=== PATIENT | male | born 1980 | race Caucasian/White ===

== ENCOUNTER 2019-12-25 16:08 | Inpatient (IN) | payer MEDICAID, OTHER ==
[~2019-12-25] VITALS: Ht 165.1 cm; Wt 84.5 kg
[2019-12-25] MEDS ORDERED: NITROGLYCERIN 0.4MG TABLET SL SL PRN (19:45)
[2019-12-25] MEDS ORDERED: ASPIRIN 81MG TABLET PO ONE (19:45)
[2019-12-25 20:02] LABS: BASOPHILS % 0.5 % (0.0-2.0); HEMATOCRIT. 47.8 % (42.0-52.0); LYMPHOCYTES % 22.6 % (20.0-50.0); MEAN CORPUSCULAR HEMOGLOBIN 31.8 pg (28.0-32.0); MEAN CORPUSCULAR VOLUME 89.3 fL (80.0-94.0); MONOCYTES % 3.9 % (2.0-8.0); PLATELET 237 x1000/uL (130-400); RED BLOOD CELL COUNT 5.36 mill/uL (4.7-6.1); RED CELL DISTRIBUTION WIDTH 13.6 % (11.6-14.6)
[2019-12-25 20:08] LABS: CHLORIDE 103 mEq/L (98-107)
[2019-12-25] MEDS ORDERED: HEPARIN 25,000 UNITS PREMIX 500 ML IV STA (21:39)
[2019-12-25] MEDS ORDERED: HEPARIN 5000 UNITS/ML VIAL IV SCH (23:30)
[2019-12-25] MEDS ORDERED: HEPARIN 5000 UNITS/ML VIAL IV PRN ×3 (23:30→23:33)
[2019-12-25] MEDS ORDERED: HEPARIN 25,000 UNITS PREMIX 500 ML IV PRN (23:30)
[2019-12-25 23:56] LABS: INR 1.1; PROTHROMBIN TIME 11.9 sec (9.6-11.0)
[2019-12-26] MEDS ORDERED: CLONIDINE 0.1MG TABLET PO PRN (08:30)
[2019-12-26] MEDS ORDERED: ONDANSETRON HCL 4MG/2ML INJ IV PRN (08:30)
[2019-12-26] MEDS ORDERED: IPRATROPIUM/ALBUTEROL 0.5-3(2.5)MG/3ML NEB HHN PRN (08:30)
[2019-12-26] MEDS ORDERED: MORPHINE SULFATE 2 MG/ML CPJ (NOT FOR IM USE) IV PRN (08:30)
[2019-12-26] MEDS ORDERED: ACETAMINOPHEN 325MG TABLET PO PRN (08:30)
[2019-12-26] MEDS ORDERED: DIPHENHYDRAMINE 50MG/ML VIAL IV PRN (08:30)
[2019-12-26] MEDS ORDERED: DEXTROSE 50% WATER 50ML SYRINGE IV PRN (09:00)
[2019-12-26] MEDS: INSULIN LISPRO 100 UNITS/ML SUBCUT SCH ×5 (09:00→21:50)
[2019-12-26] MEDS: BLOOD SUGAR DIAGNOSTIC STRIP TEST SCH ×4 (09:16→21:00)
[2019-12-26 09:56] LABS: PHOSPHORUS 4.2 mg/dL (2.5-4.9)
[2019-12-26] MEDS ORDERED: ENOXAPARIN 40MG/0.4ML SYR SUBCUT SCH (14:00)
[2019-12-26 15:34] LABS: CREATINE KINASE 78 IU/L (39-308)
[2019-12-26 15:35] LABS: CREATINE KINASE MB FRACTION < 1.0 ng/mL (0.5-3.6)
[2019-12-26 17:00] VITALS: BP 134/91
[2019-12-26] MEDS ORDERED: METF-815 MT (18:08)
[2019-12-26 20:00] VITALS: BP 124/80
[2019-12-26] MEDS ORDERED: ATORVASTATIN CALCIUM 40MG TABLET PO SCH (21:00)
[2019-12-27] VITALS: BP 99/78
[2019-12-27 00:10] LABS: CREATINE KINASE 87 IU/L (39-308)
[2019-12-27 00:11] LABS: CREATINE KINASE MB FRACTION < 1.0 ng/mL (0.5-3.6)
[2019-12-27 04:00] VITALS: BP 104/72
[2019-12-27] MEDS: BLOOD SUGAR DIAGNOSTIC STRIP TEST SCH ×2 (07:32→12:12)
[2019-12-27] MEDS: INSULIN LISPRO 100 UNITS/ML SUBCUT SCH ×2 (07:40→12:12)
[2019-12-27 07:50] VITALS: BP 104/73
[2019-12-27] MEDS ORDERED: REGADENOSON 0.4 MG/5 ML IV NR (08:00)
[2019-12-27 08:23] LABS: BASOPHILS % 0.4 % (0.0-2.0); HEMATOCRIT. 48.9 % (42.0-52.0); HEMOGLOBIN. 16.8 g/dL (14.0-18.0); LYMPHOCYTES % 30.1 % (20.0-50.0); MEAN CORPUSCULAR HEMOGLOBIN 30.8 pg (28.0-32.0); MEAN CORPUSCULAR VOLUME 89.4 fL (80.0-94.0); MEAN PLATELET VOLUME 9.9 fl (7.4-10.4); NEUTROPHILS % 60.5 % (40.0-76.0); PLATELET 232 x1000/uL (130-400); RED BLOOD CELL COUNT 5.47 mill/uL (4.7-6.1); RED CELL DISTRIBUTION WIDTH 13.6 % (11.6-14.6)
[2019-12-27 08:29] LABS: CHLORIDE 104 mEq/L (98-107)
[2019-12-27 08:41] LABS: LDL CHOLESTEROL 126 mg/dL (5-100)
[2019-12-27 08:42] LABS: HDL CHOLESTEROL 43 mg/dL (40-59)
[2019-12-27] MEDS ORDERED: REGADENOSON 0.4 MG/5 ML IV ONE (10:34)
[2019-12-27 12:00] VITALS: BP 118/78
[2019-12-27] MEDS ORDERED: ATOR40TA70 MT ×2 (12:17→12:26)
[2019-12-27] MEDS ORDERED: SITA1TAB2 PO ×2 (12:22→12:26)
[2019-12-27 13:41] VITALS: BP 118/78
[2019-12-27 16:00] VITALS: BP_SYST 112; BP_SYST 118; BP_DIAS 77; BP_DIAS 78
== END 2019-12-27 16:00 | disposition home or self-care (01) | DRG 203 ==
LOC: ER 16:08 → 8WST 12-26 00:03 → EDBEDREQTM 12-26 00:07 → EDBEDREQ 12-26 00:07 → EDBEDREQDT 12-26 00:07 → ENRESERV 12-26 15:28
PROVIDERS: ADMIT Internal Medicine; ATTEND Internal Medicine
DX: M94.0 Chondrocostal junction syndrome [Tietze] (principal); E78.5 Hyperlipidemia, unspecified; Y92.89 Other specified places as the place of occurrence of the external cause; E11.65 Type 2 diabetes mellitus with hyperglycemia; E87.8 Other disorders of electrolyte and fluid balance, not elsewhere classified; D68.59 Other primary thrombophilia
CPT/HCPCS: 36415; 71045; 78452; 80048; 80053; 80061; 82550; 82553; 82962; 83036; 83735; 83880; 84100; 84443; 84484; 85025; 93005; 93017; 93306; 93970; 99285; A9500; J1644; J1650; J1815; J2785